=== PATIENT | male | born 1975 | race African-American/Black ===

== ENCOUNTER 2023-03-22 08:17 | Day surgery (SDC) | payer OTHER ==
[2023-03-20 11:58] VITALS: BMI 37.8
[2023-03-22 10:04] VITALS: RESP 18; TEMP 97
[2023-03-22 10:05] VITALS: BP 101/61; PULSE 69
== END 2023-03-22 10:30 | disposition home or self-care (01) ==
LOC: FASU-ENDO 08:17
PROVIDERS: ATTEND Internal Medicine Gastroenterology
PROC: 0DJD8ZZ Inspection of Lower Intestinal Tract, Via Natural or Artificial Opening Endoscopic (ICD-10-PCS; principal; 2023-03-22 09:19)
DX: Z12.11 Encounter for screening for malignant neoplasm of colon (principal); K57.30 Diverticulosis of large intestine without perforation or abscess without bleeding